=== PATIENT | female | born 1955 | race Caucasian/White ===

== ENCOUNTER 2016-12-08 22:29 | Inpatient (IN) | payer MEDICARE, OTHER ==
--- NOTE | 2016-12-08 22:31 | ED Physician Documentation ---
General Adult - HISTORIAN Historian: patient - HPI Stated Complaint: sob, chest pain Chief Complaint: General Adult Onset: days ago (3) Timing: worse Severity: moderate Further Comments: yes (Pt is a 61 yo female who has been having increasing sob and cough x 3 days as well as chest pain that began after sob and cough developed. Pt has had chills, malaise. PMHx bronchitis & pneumonia. Pt also has hx stroke.) - ROS CONST: weakness, chills, other (malaise) EYES/ENT: none CVS/RESP: shortness of breath, cough (productive) GI/: none MS/SKIN/LYMPH: none - PAST HX Past History: other (CVA; pneumonia; bronchitis; HTN; HLD; GERD; carotid bruit) Allergies/Adverse Reactions: Allergies Allergy/AdvReac Type Severity Reaction Status Date / Time No Known Drug Allergies Allergy Verified 09/20/16 13:21 - SOCIAL HX Smoking History: other (unknown if ever smoked) - FAMILY HX Family History: No - VITAL SIGNS Vital Signs: Vital Signs Temp Pulse Resp BP Pulse Ox 128/70 09/20/16 14:27 - REVIEWED ASSESSMENTS Nursing Assessment Reviewed: Yes Vitals Reviewed: Yes Progress - Progress Progress: Duoneb HFN Tylenol 1000 mg po KCl 20 mEq po Solu-medrol 80 mg IV Albuterol HFN NS 500 cc IVF bolus Levaquin 500 mg IV Blood cx's pending. Admit to Dr. Amaya. - EKG/XRAY/CT EKG: NSR (HR=71; frequent atrial premature beats; LVH by voltage) XRAY: chest (bilateral pulmonary infiltrates are present, greater on the left than right) General Adult Physical Exam - PHYSICAL EXAM GENERAL APPEARANCE: moderate distress EENT: eye inspection normal, pharynx normal, dry mucous membranes NECK: normal inspection, supple RESPIRATORY: wheezes, rales, rhonchi CVS: tachycardia ABDOMEN: soft, no organomegaly, normal bowel sounds BACK: normal inspection, no CVA tenderness SKIN: pallor EXTREMITIES: non-tender, normal range of motion, no evidence of injury NEURO: oriented X3, motor nml, sensation nml Discharge Clincal Impression: Hypokalemia, Chest pain Pneumonia Qualifiers: Pneumonia type: due to unspecified organism Laterality: bilateral Lung location : lower lobe of lung Qualified Code(s): J18.9 - Pneumonia, unspecified organism Condition: Fair Decision to Admit: [id number] Decision Time: 00:10
[2016-12-08] MEDS ORDERED: ASPIRIN 81 MG CHEW TAB PO ONE (22:32)
[2016-12-08] MEDS ORDERED: IPRATROPIUM/ALBUTEROL SULFATE 3 ML AMPUL.NEB NEB ONE (22:32)
[2016-12-08] MEDS ORDERED: ASPIRIN 325 MG TABLET PO ONE (22:45)
[2016-12-08] MEDS ORDERED: 0.9 % SODIUM CHLORIDE 1,000 ML IV ONE (22:50)
[2016-12-08 22:57] LABS: EOSINOPHILS % 0.1 % (0.0-6.8); LYMPHOCYTES # 0.6 # k/uL (0.6-4.0); MEAN CORPUSCULAR HEMOGLOBIN 24.9 pg (28.0-34.0); MONOCYTES # 0.3 # k/uL (0.0-0.9); NEUTROPHILS # 9.4 # k/uL (1.4-7.7)
[2016-12-08] MEDS ORDERED: 0.9 % SODIUM CHLORIDE 1,000 ML IV SCH (23:00)
[2016-12-08 23:09] LABS: eGFR (African) > 60; eGFR (Non-African) > 60
[2016-12-08] MEDS ORDERED: ACETAMINOPHEN 500 MG TABLET PO ONE (23:10)
[2016-12-08] MEDS ORDERED: ACETAMINOPHEN 500 MG TABLET ONE (23:16)
[2016-12-08] MEDS ORDERED: POTASSIUM CHLORIDE 20 MEQ TABLET.ER PO ONE (23:24)
[2016-12-08] MEDS ORDERED: methylPREDNISolone SOD SUCC 40 MG/ML VIAL IM ONE (23:25)
[2016-12-08] MEDS ORDERED: ALBUTEROL SULFATE 2.5 MG/3 ML AMPUL.NEB NEB ONE (23:42)
[2016-12-08] MEDS ORDERED: LEVOFLOXACIN 500MG/D5W 100ML 100 ML IV ONE (23:44)
[2016-12-09] MEDS ORDERED: POTASSIUM CHLORIDE 40 MEQ/NS 1,000 ML IV ONE (00:45)
[2016-12-09] MEDS ORDERED: ENOXAPARIN SODIUM 40 MG/0.4 ML DISP.SYRIN SQ SCH (01:00)
[2016-12-09 01:08] VITALS: BMI 25.2
[2016-12-09] MEDS: 0.9 % SODIUM CHLORIDE 1,000 ML, POTASSIUM CHLORIDE 40 MEQ/NS 40 ML IV SCH ×6 (01:29→21:36)
[2016-12-09] MEDS ORDERED: 0.9 % SODIUM CHLORIDE 250 ML IV ONE (01:33)
[2016-12-09] MEDS ORDERED: AZITHROMYCIN 500 MG VIAL IV ONE (01:33)
[2016-12-09] MEDS: ALBUTEROL SULFATE 2.5 MG/3 ML AMPUL.NEB NEB SCH ×5 (01:50→17:12)
[2016-12-09] MEDS: AZITHROMYCIN 500 MG in 0.9 % SODIUM CHLORIDE 250 ML IV SCH (01:51)
[2016-12-09] MEDS ORDERED: SALINE FLUSH 10 ML DISP.SYRIN IVF ONE ×3 (03:36→18:33)
[2016-12-09 05:06] LABS: eGFR (African) > 60; eGFR (Non-African) > 60
[2016-12-09] MEDS: SIMVASTATIN 20 MG TABLET PO SCH ×2 (05:28→19:27)
--- NOTE | 2016-12-09 06:45 | Diagnostic Imaging Report ---
Report Submission Date: Dec 08, 2016 11:30:08 PM WIND INSTRUMENT REPAIRER Patient ~ Study Name: DARYN BALBUENA ~ Date: Dec 08, 2016 11:02:06 PM WIND INSTRUMENT REPAIRER ~ Modality Type: CR Gender: F ~ Description: CHEST : 57 ~ Institution: [facility] Physician: [place] ~ ~ ~ ~ Ap portable upright radiographs of the chest Clinical history: Chest pain short of breath Technique: anterior /posterior portable upright Findings: ~bilateral pulmonary infiltrates are present, greater on the left than right. The heart is enlarged. The aorta is tortuous and calcified. There is density over the right hilum which may represent a mass superimposed infiltrate. Both lung trevizo are hypoventilated. Impression: Bilateral pulmonary infiltrates Right hilar enlargement Hypo ventilation Cardiomegaly Aortic atherosclerosis ~ Electronically signed on Dec 08, 2016 11:30:08 PM WIND INSTRUMENT REPAIRER by: Andrew DESAI
[2016-12-09] MEDS ORDERED: LEVOFLOXACIN 500MG/D5W 100ML 100 ML IV ONE (08:53)
[2016-12-09] MEDS ORDERED: ONDANSETRON HCL 4 MG TAB.RAPDIS PO PRN (08:55)
[2016-12-09] MEDS ORDERED: PANTOPRAZOLE SODIUM 40 MG TABLET PO SCH (09:00)
[2016-12-09] MEDS ORDERED: LEVOFLOXACIN 500MG/D5W 100ML 500 MG in PREMIX BAG 1 BAG IV SCH (09:00)
--- NOTE | 2016-12-09 09:02 | History and Physical Report ---
History of Present Illnes - History of Present Illness Reason for Visit: Bibasilar pneumonia, hypokalemia History of Present Illness: 61 year old female who came to the ER last night due to cough and chest pain. She has had a productive cough for the past few days and specifically says that she has been ill now since Thursday. She has had some precordial chest pain also with this. She denies that she has measured her temperature, but has felt flushed and has had some difficulty eating due to chronic nausea since onset of symptoms. She has not used a nebulizer and is not oxygen dependent at home. - Past Medical History Cardiac: HTN Pulmonary: Asthma PERSONAL CARER: Other (Stroke with right hemiparesis) Gastrointestinal: Gastritis Heme/Onc: Anemia NOS Musculoskeletal: Chronic low back pain Endocrine: denies: Diabetes - Past Surgical History Past Surgical History: Hysterectomy - Past Social History Smoke: No Alcohol: None Drugs: None Lives: With Family () - Health Maintenance Health Maintenance: Cholesterol Influenza Vaccine: Current for this Influenza Season Pneumonia Vaccine: Yes Resuscitation Status: Resusciation Status Resuscitation Status Full Code Review of Systems - Review of Systems Constitutional: Fever, Chills, Sweats Eyes: negative: pain ENT: negative: Ear Pain Respiratory: Cough, SOB with Excertion, Sputum. negative: Hemoptysis Cardiovascular: Chest Pain Gastrointestinal: Nausea, Vomiting Genitourinary: negative: Dysuria Musculoskeletal: negative: Neck Pain, Shoulder Pain Skin: negative: Rash Neurological: Weakness. negative: Confusion, Seizures - Medications/Allergies Allergies/Adverse Reactions: Allergies Allergy/AdvReac Type Severity Reaction Status Date / Time No Known Drug Allergies Allergy Verified 09/20/16 13:21 Current Inpatient Medications: Current Inpatient Medications Albuterol Sulfate (Ventolin) 2.5 mg NEB Q4 [facility] Last Admin: 12/09/16 08:51 Dose: 2.5 mg Amlodipine Besylate (Norvasc) 10 mg PO DAILY [facility] Stop: 12/14/16 23:59 Enoxaparin Sodium (Lovenox) 40 mg SQ QD [facility] Stop: 12/23/16 08:59 Fluticasone Propionate (Flonase Nasal [place]) 1 spray NS DAILY [facility] Gabapentin (Neurontin) 300 mg PO TID [facility] Azithromycin 500 mg/ Sodium (Chloride) 250 mls @ 125 mls/hr IV Q24H [facility] Stop: 12/19/16 00:59 Last Admin: 12/09/16 01:51 Dose: 125 mls/hr Levofloxacin/Dextrose 500 mg/ (PREMIX BAG) 100 mls @ 100 mls/hr IV DAILY [facility] Stop: 12/23/16 08:59 Sodium Chloride/ Potassium (Chloride/Sodium Chloride) 1,040 mls @ 100 mls/hr IV Q10H [facility] Last Admin: 12/09/16 01:29 Dose: 100 mls/hr Loratadine (Claritin) 10 mg PO DAILY [facility] Losartan Potassium (Cozaar) 50 mg PO DAILY [facility] Nortriptyline HCl (Nortriptyline Hcl) 25 mg PO HS [facility] Ondansetron HCl (Zofran Odt) 4 mg PO Q6H PRN PRN Reason: Nausea / Vomiting Pantoprazole Sodium (Protonix) 40 mg PO DAILY [facility] Potassium Chloride (Klor-Con M20) 20 meq PO BID [facility] Simvastatin (Zocor) 20 mg PO HS [facility] Last Admin: 12/09/16 05:28 Dose: Not Given Exam - Exam Vital Signs: Vital Signs (72 hours) 12/09/16 12/09/16 12/09/16 00:14 00:28 00:30 Temperature 101.4 F H 98.1 F Pulse Rate 121 H Pulse Rate [ 124 H 121 H Pulse ox] Respiratory 28 H 24 Rate Blood Pressure 130/52 126/54 [Right Arm] O2 Sat by Pulse 94 93 93 Oximetry 12/09/16 12/09/16 12/09/16 01:00 01:33 01:40 Temperature 97.9 F Pulse Rate 113 H 112 H Pulse Rate [ 112 H Pulse ox] Respiratory 20 Rate Blood Pressure 143/50 [Right Arm] O2 Sat by Pulse 93 95 95 Oximetry 12/09/16 12/09/16 12/09/16 04:00 05:04 05:05 Temperature 97.6 F Pulse Rate 103 H 105 H Pulse Rate [ 103 H Pulse ox] Respiratory 22 Rate Blood Pressure 116/57 [Right Arm] O2 Sat by Pulse 95 93 93 Oximetry 12/09/16 08:00 Temperature Pulse Rate 109 H Pulse Rate [ Pulse ox] Respiratory Rate Blood Pressure [Right Arm] O2 Sat by Pulse 93 Oximetry General: Alert, Oriented to Person, Oriented to Place, Moderate distress ( respiratory) HEENT: Atraumatic, PERRLA, EOMI Neck: No: Stridor Lungs: Respiratory Distress, Wheezes, Prolonged Expiration, Decreased Air Movement Cardiovascular: Regular rate Murmur: Systolic Murmur (unchanged from last exam) Heart Murmur Grade: II Abdomen: Normal bowel sounds, Soft, No tenderness Genitourinary: No: Right Inguinal Hernia, Left Inguinal Lymph Male Genitourinary: Other (NA) Female Genitourinary: No: Prolapse Integumentary: Normal, Pale Extremities: No clubbing, No cyanosis, No edema Neurological: Generalized Weakness Psych/Mental Status: Mental status NL - Laboratory Results Laboratory Results: Laboratory Results 12/09/16 12/09/16 04:40 04:40 Sodium 138 Potassium 3.3 L Chloride 100 Carbon Dioxide 24 BUN 12 Creatinine 0.6 Estimated Creat Clear 131 Est GFR ( Amer) > 60 Est GFR (Non-Af Amer) > 60 Glucose 190 H Calcium 8.7 Total Bilirubin 0.2 AST 18 ALT 17 Alkaline Phosphatase 92 Creatine Kinase 147 Troponin I < 0.03 Total Protein 6.9 Albumin 4.3 - Interpretation/Data Interpretation/Data: EKG shows sinus tachycardia, no evidence of ongoing ischemia or previous infarction Troponins are negative CXR shows bibasilar infiltrates Assessment/Plan - Assessment/Plan (1) Chest pain Status: Acute Current Visit: Yes Qualifiers: Chest pain type: precordial chest pain Qualified Code(s): R07.2 - Precordial pain Assessment: With reassuring EKG and negative troponins (2) Hypokalemia Status: Acute Current Visit: Yes Assessment: Improved after initial dose of potassium Plan: Recheck BMP in the AM Start potassium chloride 20 meq po BID (3) Pneumonia Status: Acute Current Visit: Yes Qualifiers: Pneumonia type: due to unspecified organism Laterality: bilateral Lung location: lower lobe of lung Qualified Code(s): J18.9 - Pneumonia, unspecified organism Assessment: Currently on Azithromycin and levofloxacin (4) Anemia Status: Acute Current Visit: No Qualifiers: Anemia type: iron deficiency Iron deficiency anemia type: other iron deficiency Qualified Code(s): D50.8 - Other iron deficiency anemias Assessment: Check CBC in the am Continue pantoprazole for GI prophylaxis (5) Hemiparesis Status: Acute Current Visit: No VTE Assessment - RISK FACTOR SCORE VTE RISK FACTOR SCORES: AGE 40-60 YEARS, ACUTE INFECTION OTHER THEN SEPSIS - RISK VTE MODERATE RISK: SCORE OF 2 (RISK PROXIMAL DVT 2-4%) PROPHYAXIS NEEDED
[2016-12-09] MEDS: LORATADINE 10 MG TABLET PO SCH (09:19)
[2016-12-09] MEDS: LOSARTAN POTASSIUM 50 MG TABLET PO SCH (09:19)
[2016-12-09] MEDS: FLUTICASONE PROPIONATE 120 SPRAY/16 GR BOTTLE NS SCH (09:19)
[2016-12-09] MEDS: ENOXAPARIN SODIUM 40 MG/0.4 ML DISP.SYRIN SQ SCH (09:20)
[2016-12-09] MEDS: GABAPENTIN 300 MG CAPSULE PO SCH ×3 (09:20→17:59)
[2016-12-09] MEDS: POTASSIUM CHLORIDE 20 MEQ TABLET.ER PO SCH ×2 (09:20→19:33)
[2016-12-09] MEDS: amLODIPine BESYLATE 5 MG TABLET PO SCH (09:20)
[2016-12-09 11:15] LABS: MEAN CORPUSCULAR HEMOGLOBIN 24.5 pg (28.0-34.0)
[2016-12-09 11:31] LABS: HYPOCHROMASIA 1+ (NEGATIVE); SEGMENTED NEUTROPHILS % 93 % (39-79)
[2016-12-09] MEDS: traMADol HCL 50 MG TABLET PO PRN (14:43)
[2016-12-09] MEDS: LORazepam 0.5 MG TABLET PO PRN (18:37)
[2016-12-09] MEDS: methylPREDNISolone SOD SUCC 125 MG/2 ML VIAL IVP SCH (18:37)
[2016-12-09] MEDS: LEVOFLOXACIN 500MG/D5W 100ML 500 MG in PREMIX BAG 1 BAG IV SCH (19:28)
[2016-12-09] MEDS ORDERED: LEVALBUTEROL HCL 1.25 MG/3 ML AMPUL.NEB NEB ONE (19:34)
[2016-12-09] MEDS ORDERED: LEVALBUTEROL HCL 1.25 MG/3 ML AMPUL.NEB NEB PRN (19:46)
[2016-12-09] MEDS: IPRATROPIUM/ALBUTEROL SULFATE 3 ML AMPUL.NEB NEB SCH ×2 (19:50→23:32)
[2016-12-09] MEDS ORDERED: NORTRIPTYLINE HCL 25 MG CAPSULE PO SCH (21:00)
[2016-12-10] MEDS: 0.9 % SODIUM CHLORIDE 1,000 ML, POTASSIUM CHLORIDE 40 MEQ/NS 40 ML IV SCH ×2 (00:30)
[2016-12-10] MEDS: traMADol HCL 50 MG TABLET PO PRN (00:31)
[2016-12-10] MEDS: AZITHROMYCIN 500 MG in 0.9 % SODIUM CHLORIDE 250 ML IV SCH (00:31)
[2016-12-10] MEDS: LORazepam 0.5 MG TABLET PO PRN (00:32)
[2016-12-10] MEDS: IPRATROPIUM/ALBUTEROL SULFATE 3 ML AMPUL.NEB NEB SCH ×2 (03:10→05:47)
[2016-12-10] MEDS: methylPREDNISolone SOD SUCC 125 MG/2 ML VIAL IVP SCH ×2 (05:48→13:32)
[2016-12-10 06:29] LABS: MEAN CORPUSCULAR HEMOGLOBIN 23.8 pg (28.0-34.0)
[2016-12-10 06:49] LABS: eGFR (African) > 60; eGFR (Non-African) > 60
[2016-12-10] MEDS ORDERED: PANTOPRAZOLE SODIUM 40 MG TABLET PO SCH ×2 (07:00)
--- NOTE | 2016-12-10 08:26 | Inpatient Progress Note ---
Subjective - Required Recertification Statement I anticipate X number of days because-include discharge plan: 3 - Review of Systems Events since last encounter: Carol is continuing to improve, albeit somewhat slowly. Her labs look better today with her hemoglobin stabilizing. I suspect that the initial drop was hydrational. She has not had any blood in her stools. I did guiac one stool yesterday which was negative. Her potassium is now normal. Her CXR showed no worsening of her pneumonia. Right hilar fullness is again noted. She will need CT chest in the near future, however I don't think that she can tolerate that in her current condition. General: Fatigue. Denies: Chills HEENT: Denies: Head Aches Pulmonary: Dyspnea, Cough, Pleuritic Chest Pain Cardiovascular: Chest Pain. Denies: Palpitations, Orthopnea Gastrointestinal: Nausea, Vomiting Genitourinary: Denies: Dysuria Musculoskeletal: Denies: Neck Pain, Shoulder Pain Neurological: Weakness. Denies: Confusion Objective - Exam Vitals and I&O: Vital Signs Temp 98.9 F 12/10/16 05:33 Pulse 98 H 12/10/16 05:33 Resp 24 12/10/16 05:51 BP 131/81 12/10/16 05:33 Pulse Ox 90 L 12/10/16 05:33 Intake & Output 12/09/16 12/09/16 12/10/16 11:59 23:59 11:59 Intake Total 1520 1495 1200 Output Total 600 800 Balance 1520 895 400 Weight 70.9 kg Intake: IV 7330 600 3751 Right Antecubital 1400 Right Forearm 895 1200 Oral 120 600 Output: Urine 600 800 Other: Voiding Method Toilet Toilet # Voids 3 5 # Bowel Movements 1 General: Alert, Oriented to Person, Oriented to Place, Moderate distress ( respiratory) HEENT: Atraumatic, PERRLA, Other (dentures) Neck: Supple, No JVD Lungs: Speaks full Sentences, Respiratory Distress, Wheezes, Decreased Air Movement Cardiovascular: Regular rate Abdomen: Normal bowel sounds, Soft, No tenderness Extremities: No clubbing, No cyanosis, No edema Skin: Normal, [place] Neurological: Normal speech Psych/Mental Status: Mental status NL - Results Results: Laboratory Results WBC 9.10 K/ul (4.00-12.00) 12/10/16 06:20 RBC 3.47 M/ul (3.90-5.20) L 12/10/16 06:20 Hgb 8.3 g/dL (12.0-16.0) L 12/10/16 06:20 Hct 28.4 % (34.5-46.5) L 12/10/16 06:20 MCV 81.8 fl (80.0-100.0) 12/10/16 06:20 MCH 23.8 pg (28.0-34.0) L 12/10/16 06:20 MCHC 29.1 g/dL (30.0-36.0) L 12/10/16 06:20 RDW 14.3 % (11.3-14.3) 12/10/16 06:20 Plt Count 155 K/mm3 (130-400) 12/10/16 06:20 Neut % (Auto) 90.8 % (39.0-79.0) H 12/08/16 22:48 Lymph % (Auto) 5.4 % (16.0-50.0) L 12/08/16 22:48 [place] % (Auto) 3.0 % (0.0-11.0) 12/08/16 22:48 Eos % (Auto) 0.1 % (0.0-6.8) 12/08/16 22:48 Baso % (Auto) 0.0 (0.0-1.5) 12/08/16 22:48 Neut # 9.4 # k/uL (1.4-7.7) H 12/08/16 22:48 Lymph # 0.6 # k/uL (0.6-4.0) 12/08/16 22:48 [place] # 0.3 # k/uL (0.0-0.9) 12/08/16 22:48 Eos # 0.0 # k/uL (0.0-0.6) 12/08/16 22:48 Baso # 0.0 # k/uL (0.0-0.5) 12/08/16 22:48 Seg Neutrophils % 93 % (39-79) H 12/09/16 11:00 Band Neutrophils % 5 % (0-12) 12/09/16 11:00 Lymphocytes % 2 % (16-50) L 12/09/16 11:00 Reactive Lymphs % 0.6 % (0.0-5.0) 12/08/16 22:48 Reactive Lymphs # 0.1 # k/uL (0.0-0.8) 12/08/16 22:48 Plt Morphology Comment Normal (NORMAL) 12/09/16 11:00 Hypochromasia 1+ (NEGATIVE) H 12/09/16 11:00 RBC Morph Comment Abnormal (NORMAL) H 12/09/16 11:00 PT 11.2 Seconds (9.7-11.5) 12/08/16 22:48 INR 1.1 (0.9-1.1) 12/08/16 22:48 APTT 32.8 Seconds (24.5-32.8) 12/08/16 22:48 D-Dimer 652 ng/mL (0-682) 12/08/16 22:48 Sodium 140 mmol/L (136-145) 12/10/16 06:20 Potassium 4.3 mmol/L (3.5-5.0) 12/10/16 06:20 Chloride 105 mmol/L (98-110) 12/10/16 06:20 Carbon Dioxide 26 mmol/L (20-32) 12/10/16 06:20 BUN 11 mg/dL (10-26) 12/10/16 06:20 Creatinine 0.5 mg/dL (0.4-1.5) 12/10/16 06:20 Estimated Creat Clear 157 12/10/16 06:20 Est GFR ( Amer) > 60 (60-) 12/10/16 06:20 Est GFR (Non-Af Amer) > 60 (60-) 12/10/16 06:20 Glucose 179 mg/dL (70-99) H 12/10/16 06:20 Calcium 9.6 mg/dL (8.5-10.5) 12/10/16 06:20 Total Bilirubin 0.2 mg/dL (0.2-1.2) 12/09/16 04:40 AST 18 U/L (0-41) 12/09/16 04:40 ALT 17 U/L (0-45) 12/09/16 04:40 Alkaline Phosphatase 92 U/L (46-116) 12/09/16 04:40 Creatine Kinase 200 U/L (0-225) 12/09/16 11:00 Troponin I < 0.03 ng/mL (0.00-0.06) 12/09/16 11:00 NT-Pro-B Natriuret Pep 255.3 pg/mL (15.0-125.0) H 12/08/16 22:48 Total Protein 6.9 g/dL (6.0-8.5) 12/09/16 04:40 Albumin 4.3 g/dL (3.0-5.5) 12/09/16 04:40 Assessment/Plan - Assessment/Plan (1) Chest pain Status: Acute Current Visit: Yes Qualifiers: Chest pain type: precordial chest pain Qualified Code(s): R07.2 - Precordial pain Assessment: Improved with negative troponins and no evidence of ischemia on EKG (2) Hypokalemia Status: Acute Current Visit: Yes Assessment: Now normokalemic (3) Pneumonia Status: Acute Current Visit: Yes Qualifiers: Pneumonia type: due to unspecified organism Laterality: bilateral Lung location: lower lobe of lung Qualified Code(s): J18.9 - Pneumonia, unspecified organism Assessment: Improved clinically Plan: Continue current antibiotics and nebulizer/steroid treatment (4) Anemia Status: Acute Current Visit: No Qualifiers: Anemia type: iron deficiency Iron deficiency anemia type: other iron deficiency Qualified Code(s): D50.8 - Other iron deficiency anemias Assessment: Stable, no evidence of GI blood loss Plan: Continue to guiac stools Check CBC in am (5) Hemiparesis Status: Acute Current Visit: No Assessment: Chronic due to stroke (6) Hilar mass Status: Acute Current Visit: Yes Assessment: Will need CT chest to evaluate, I don't think she can tolerate this currently
[2016-12-10] MEDS: FLUTICASONE PROPIONATE 120 SPRAY/16 GR BOTTLE NS SCH (08:53)
[2016-12-10] MEDS: POTASSIUM CHLORIDE 20 MEQ TABLET.ER PO SCH (08:53)
[2016-12-10] MEDS: LOSARTAN POTASSIUM 50 MG TABLET PO SCH (08:53)
[2016-12-10] MEDS: LORATADINE 10 MG TABLET PO SCH (08:53)
[2016-12-10] MEDS: amLODIPine BESYLATE 5 MG TABLET PO SCH (08:54)
[2016-12-10] MEDS: ENOXAPARIN SODIUM 40 MG/0.4 ML DISP.SYRIN SQ SCH (08:54)
[2016-12-10] MEDS: GABAPENTIN 300 MG CAPSULE PO SCH ×2 (08:54→14:09)
[2016-12-10] MEDS ORDERED: LEVOFLOXACIN 500MG/D5W 100ML 100 ML IV ONE (09:52)
[2016-12-10] MEDS: LEVOFLOXACIN 500MG/D5W 100ML 500 MG in PREMIX BAG 1 BAG IV SCH (10:02)
[2016-12-10] MEDS ORDERED: SALINE FLUSH 10 ML DISP.SYRIN IVF ONE (13:52)
[2016-12-10 17:18] VITALS: BP 152/84
[2016-12-10] MEDS: LEVALBUTEROL HCL 1.25 MG/3 ML AMPUL.NEB NEB SCH ×2 (17:25→17:27)
--- NOTE | 2016-12-10 18:21 | Diagnostic Imaging Report ---
[facility] [address] [facility] [address] [place], [place]. [address] Report Submission Date: Dec 10, 2016 6:54:33 AM CLOTH FOLDER MACHINE Patient Study Name: DARYN BALBUENA Date: Dec 10, 2016 6:33:49 AM CLOTH FOLDER MACHINE Modality Type: CR Gender: F Description: CHEST : 57 Institution: [facility] Physician: HIPOLITO RONAK 2 views of the chest History: BIBASILAR PNEUMONIA findings: Comparison: Chest x-ray dated December 08, 2016 Low lung volumes. Mild cardiomegaly. Patient is rotated Prominent right hilum Opacity again noted in the right midlung and lower lobe. Vague opacity in the left mid and lower lung trevizo persists. Left pleural effusion may be present. No pneumothorax. No acute osseous pathology Impression: 1. Cardiomegaly 2. Bilateral pulmonary airspace opacities persist without change. Followup to resolution. Small left pleural effusion may be present. 3. Prominent right hilum is again seen. CT chest evaluation may be considered when feasible to exclude malignancy. Electronically signed on Dec 10, 2016 6:54:33 AM CLOTH FOLDER MACHINE by: Celine Jasso The cardiomediastinal silhouette is stable, with prominence of the right hilum? related to tortuous aorta versus mass Addendum electronically signed by Celine Jasso on December 10, 2016 6:57: 56 AM CLOTH FOLDER MACHINE MTDD
--- NOTE | 2016-12-10 18:30 | Diagnostic Imaging Report ---
[facility] [address] [facility].[address] [address] Report Submission Date: Dec 10, 2016 1:22:08 PM NEAR EASTERN ARCHAEOLOGY LECTURER Patient Study Name: DARYN BALBUENA Date: Dec 10, 2016 1:01:19 PM NEAR EASTERN ARCHAEOLOGY LECTURER Modality Type: CR Gender: F Description: CHEST : 57 Institution: [facility] Physician: MATHEW ARREDONDO Chest -one view CLINICAL HISTORY: Dyspnea. FINDINGS: Examination of the chest single portable AP view 12/10/2016 1301 hr with comparison to examination from earlier in the day demonstrates bilateral infiltrates without significant change. There is a right paramediastinal mass density that may be related to ectatic or tortuous aorta. The possibility of underlying mass cannot be excluded. Consider CT scan for better evaluation. IMPRESSION: Prominence of right paramediastinal soft tissues with right perihilar infiltrate that has a somewhat nodular appearance. Consider CT scan for better evaluation. Electronically signed on Dec 10, 2016 1:22:08 PM NEAR EASTERN ARCHAEOLOGY LECTURER by: Jacob DESAI
--- NOTE | 2016-12-10 18:32 | Diagnostic Imaging Report ---
[facility] [address] [facility] [place], [place]. [address] Report Submission Date: Dec 10, 2016 3:35:24 PM STEM SHAPER Patient Study Name: DARYN BALBUENA Date: Dec 10, 2016 2:22:31 PM STEM SHAPER Modality Type: CT\SR Gender: F Description: CT ANGIOGRAPHY CHEST 7 : 57 Institution: [facility] Physician: MATHEW SAMUELS chest History: INCREASING SOB, HX OF STROKE (Hx) / R/O PE Multiple axial images of the chest are submitted with reconstructions Findings: No similar comparison studies Mucus is noted in the trachea. There is slight narrowing of the midline trachea Motion artifact. Scattered subcentimeter mediastinal lymph nodes. No pericardial effusion. Cardiomegaly Limited evaluation of the pulmonary arterial subsegmental branches to the bilateral lower lobe lobes for evaluation of PE due to extensive consolidation infiltrates, within this limitation, no obvious PE. Patchy infiltrate right upper lobe Infiltrates are seen in the right middle lobe and in the right lower lobe Dense masslike consolidation with air bronchograms is seen in the inferior left upper lobe extending to the left lower lobe The aorta is tortuous, ascending aorta measures 3.9 cm Bone windows demonstrated with multilevel thoracic spine degenerative changes Limited views of the upper abdomen demonstrate no biliary dilatation. Minimal gallbladder sludge. Atherosclerotic calcification of the aorta and its branches. Pancreas is atrophic. Impression: 1. Motion artifact. Limited evaluation of the pulmonary arterial subsegmental branches due to extensive masslike consolidation in the left lung and right lower lobe infiltrates, within this limitation no PE 2. Cardiomegaly. No pericardial effusion. Aorta is tortuous, ascending aorta measures 3.9 cm 3. Extensive wedge shaped masslike consolidation is seen in the inferior left upper lobe extending from the periphery of the lung to the mediastinum with presence of air bronchograms. Postobstructive pneumonia is included in the differential diagnosis. There is dense consolidation in the left lower lobe. While this may be due to collapsed lung, alveolar hemorrhage is included in the differential diagnosis. Recommend followup to resolution. Underlying mass is difficult to exclude. 4. Mucous plugs are noted in the upper trachea with slight tracheal narrowing. Bronchoscopic correlation may be done 5. Patchy infiltrate right upper lobe. Infiltrates are also seen in the right middle and lower lobe suggestive of multifocal pneumonia. Subsegmental atelectasis in right lower lobe Electronically signed on Dec 10, 2016 3:35:24 PM STEM SHAPER by: Celine DESAI
--- NOTE | 2016-12-11 17:56 | Discharge Summary ---
DATE OF ADMISSION: December 09, 2016. DATE OF DISCHARGE: December 10, 2016. DIAGNOSES ON THIS HOSPITALIZATION: 1. Bibasilar pneumonia. 2. Hilar mass. 3. Hypokalemia. 4. Pneumonia. 5. Anemia. SUMMARIZATION OF ADMISSION HISTORY AND PHYSICAL: This is a 61-year-old female well-known to myself who presented to the emergency room with about a 3-day history of increasing dyspnea on exertion and then shortness of breath even at rest causing her to come to the emergency department. She was noted at that time to be fairly anemic with a hemoglobin of 9.5 and bibasilar infiltrates were noted and she was admitted for treatment of community-acquired pneumonia. HOSPITAL COURSE: She was started on Levaquin and azithromycin. She was also hydrated. Her hemoglobin did drop to 8.4 but on hospital day number 2, it was only 8.3. The stool guaiacs were negative. Over the course of the day, she continued to have increasing shortness of breath. ABGs were stable, however, her labor of respiration was significant enough that I did not think that it was prudent for her to remain at our facility. As a result, I contacted [facility], specifically Dr. Velasco, and she will be accepted there and will be transferred by ambulance. Continue current medications. A copy of her CT scan , which did not show any apparent pulmonary embolization, was sent. It did show dense infiltrates, as well as some mucous plugging. Copies of her history and physical, progress notes, and labs were sent with her. CONDITION ON DISCHARGE: Discharged to [facility] in guarded condition. MEDICATIONS ON DISCHARGE: Continue current medications. LLOYD
[2016-12-15 08:20] LABS: ABG BASE EXCESS 1.5 (-2 - +2); ABG PH 7.54 (7.35-7.45)
[2016-12-15 08:21] LABS: ABG BASE EXCESS 0.1 (-2 - +2); ABG PH 7.45 (7.35-7.45)
== END 2016-12-10 15:45 | disposition short-term general hospital (02) | DRG 194 ==
LOC: ED 22:29 → SOUTH 12-09 00:08
PROVIDERS: ADMIT Family Medicine; ATTEND Family Medicine
DX: J18.9 Pneumonia, unspecified organism (principal); G81.90 Hemiplegia, unspecified affecting unspecified side; R07.9 Chest pain, unspecified; D50.8 Other iron deficiency anemias; E87.6 Hypokalemia
CPT/HCPCS: 71010; 71020; 71275; 80048; 80053; 82550; 83880; 84484; 85025; 85027; 85379; 85610; 85730; 87040; 87070; 87186; 93005; 94640; 94760; 97003; 97166; 97535; A9270; J0456; J1030; J1650; J1956; J2930; J3480; J7030; J7050; J7614; Q9966; 36600; 82803; 96374; 96375; 99222; 99238; 99283; 99284; J2920; S1016

== ENCOUNTER 2017-05-12 10:19 | Outpatient (CLI) | payer MEDICARE, OTHER | END 2017-05-12 10:20 | LOC: LABRHC 10:19 | PROVIDERS: ATTEND Family Medicine | DX: J02.9 Acute pharyngitis, unspecified (principal) | CPT/HCPCS: 87070 ==

== ENCOUNTER 2017-06-03 15:39 | Outpatient (CLI) | payer MEDICARE, OTHER ==
[2017-06-03 15:58] LABS: BASOPHILS % 0.4 (0.0-1.5); EOSINOPHILS % 0.1 % (0.0-6.8); MEAN CORPUSCULAR HEMOGLOBIN 22.9 pg (28.0-34.0); MEAN CORPUSCULAR VOLUME 78.1 fl (80.0-100.0); MONOCYTES % 3.7 % (0.0-11.0); NEUTROPHILS # 2.9 # k/uL (1.4-7.7)
== END 2017-06-03 15:40 ==
LOC: LAB 15:39
PROVIDERS: ATTEND Family Medicine
DX: D50.8 Other iron deficiency anemias (principal); M60.9 Myositis, unspecified
CPT/HCPCS: 36415; 80048; 85025; 85651

== ENCOUNTER 2017-07-13 10:38 | Outpatient (CLI) | payer MEDICARE, OTHER ==
[2017-07-13 11:18] LABS: APPEARANCE,URINE CLEAR (CLEAR); COLOR,URINE YELLOW (YELLOW); OCCULT BLOOD,URINE NEGATIVE (NEGATIVE); PH URINE 6.5 (5.0 - 8.0)
[2017-07-13 11:19] LABS: AMORPHOUS SEDIMENT,UR FEW (NEGATIVE)
--- NOTE | 2017-07-13 12:43 | Diagnostic Imaging Report ---
[facility] [address] [facility] [address] Report Submission Date: Jul 13, 2017 11:58:19 AM CDT Patient Study Name: DARYN BALBUENA Date: Jul 13, 2017 11:07:48 AM CDT Modality Type: CR Gender: F Description: SPINE : 57 Institution: [facility] Physician: RONAK MCMILLAN - OP Examination: Plain film lumbar spine History: Discomfort Findings: 3 views of the lumbar spine demonstrates osteopenia. Retrolisthesis of L4 on L5 approximately 10%. Osteophyte formation. No compression deformity. Lower facet degenerative changes. Atherosclerotic disease involving the abdominal aorta. Impression: Osteopenia and degenerative changes. No acute compression deformity. Electronically signed on Jul 13, 2017 11:58:19 AM CDT by: Aram DESAI
== END 2017-07-13 13:05 ==
LOC: LAB 10:38
PROVIDERS: ATTEND Family Medicine
DX: R10.9 Unspecified abdominal pain (principal); M54.5 Low back pain
CPT/HCPCS: 72100; 81002

== ENCOUNTER 2017-08-05 16:12 | Outpatient (CLI) | payer MEDICARE, OTHER ==
[2017-08-05 16:33] LABS: BASOPHILS % 0.3 (0.0-1.5); EOSINOPHILS % 0.8 % (0.0-6.8); MEAN CORPUSCULAR HEMOGLOBIN 22.9 pg (28.0-34.0); MEAN CORPUSCULAR VOLUME 77.1 fl (80.0-100.0); MONOCYTES % 3.2 % (0.0-11.0); NEUTROPHILS # 4.1 # k/uL (1.4-7.7)
[2017-08-05 17:06] LABS: eGFR (African) > 60; eGFR (Non-African) > 60
[2017-08-06 05:21] LABS: IRON SERUM 20 ug/dL (37-145)
== END 2017-08-05 16:13 ==
LOC: LAB 16:12
PROVIDERS: ATTEND Family Medicine
DX: D50.8 Other iron deficiency anemias (principal); D50.9 Iron deficiency anemia, unspecified; I10 Essential (primary) hypertension
CPT/HCPCS: 36415; 80053; 82607; 83540; 85025

== ENCOUNTER 2017-08-21 11:47 | Outpatient (CLI) | payer MEDICARE, OTHER ==
[2017-08-21] MEDS ORDERED: IRON SUCROSE COMPLEX 200 MG in 0.9 % SODIUM CHLORIDE 50 ML IV SCH (12:00)
[2017-08-21] MEDS ORDERED: SALINE FLUSH 10 ML DISP.SYRIN IVF ONE (12:00)
[2017-08-21] MEDS ORDERED: 0.9 % SODIUM CHLORIDE 50 ML IV.SOLN IV ONE (12:00)
[2017-08-21] MEDS ORDERED: IRON SUCROSE COMPLEX 20 MG/ML 10ML VIAL IV ONE (12:00)
== END 2017-08-21 11:50 ==
LOC: INF 11:47
PROVIDERS: ATTEND Family Medicine
DX: D50.9 Iron deficiency anemia, unspecified (principal)
CPT/HCPCS: 96374; J1756; S1016

== ENCOUNTER 2017-08-24 13:22 | Outpatient (CLI) | payer MEDICARE, OTHER ==
[~2017-08-24 13:22] MED LIST: IRON SUCROSE COMPLEX 200 MG in 0.9 % SODIUM CHLORIDE 50 ML IV SCH
[2017-08-24] MEDS ORDERED: SALINE FLUSH 10 ML DISP.SYRIN IVF ONE (13:30)
[2017-08-24] MEDS ORDERED: 0.9 % SODIUM CHLORIDE 50 ML IV.SOLN IV ONE (13:30)
[2017-08-24] MEDS ORDERED: IRON SUCROSE COMPLEX 20 MG/ML 10ML VIAL IV ONE (13:30)
== END 2017-08-24 13:24 ==
LOC: INF 13:22
PROVIDERS: ATTEND Family Medicine
DX: D50.9 Iron deficiency anemia, unspecified (principal)
CPT/HCPCS: 96374; J1756; S1016

== ENCOUNTER 2017-08-25 07:54 | Outpatient (CLI) | payer MEDICARE, OTHER ==
[2017-08-25] MEDS ORDERED: 0.9 % SODIUM CHLORIDE 50 ML IV.SOLN IV ONE (08:00)
[2017-08-25] MEDS ORDERED: IRON SUCROSE COMPLEX 20 MG/ML 10ML VIAL IV ONE (08:00)
[2017-08-25] MEDS ORDERED: SALINE FLUSH 10 ML DISP.SYRIN IVF ONE (08:00)
[2017-08-25] MEDS ORDERED: IRON SUCROSE COMPLEX 200 MG in 0.9 % SODIUM CHLORIDE 50 ML IV SCH (12:00)
== END 2017-08-25 07:55 ==
LOC: INF 07:54
PROVIDERS: ATTEND Family Medicine
DX: D50.9 Iron deficiency anemia, unspecified (principal)
CPT/HCPCS: 96374; J1756

== ENCOUNTER 2017-08-28 07:46 | Outpatient (CLI) | payer MEDICARE, OTHER ==
[2017-08-28] MEDS ORDERED: SALINE FLUSH 10 ML DISP.SYRIN IVF ONE (08:00)
[2017-08-28] MEDS ORDERED: 0.9 % SODIUM CHLORIDE 50 ML IV.SOLN IV ONE (08:00)
[2017-08-28] MEDS ORDERED: IRON SUCROSE COMPLEX 20 MG/ML 10ML VIAL IV ONE (08:00)
[2017-08-28] MEDS ORDERED: IRON SUCROSE COMPLEX 200 MG in 0.9 % SODIUM CHLORIDE 50 ML IV SCH (12:00)
== END 2017-08-28 07:47 ==
LOC: INF 07:46
PROVIDERS: ATTEND Family Medicine
DX: D50.9 Iron deficiency anemia, unspecified (principal)
CPT/HCPCS: 96374; J1756; S1016

== ENCOUNTER 2017-08-31 07:54 | Outpatient (CLI) | payer MEDICARE, OTHER ==
[2017-08-31] MEDS ORDERED: SALINE FLUSH 10 ML DISP.SYRIN IVF ONE (08:00)
[2017-08-31] MEDS ORDERED: IRON SUCROSE COMPLEX 20 MG/ML 10ML VIAL IV ONE (08:00)
[2017-08-31] MEDS ORDERED: 0.9 % SODIUM CHLORIDE 50 ML IV.SOLN IV ONE (08:00)
[2017-08-31] MEDS ORDERED: IRON SUCROSE COMPLEX 200 MG in 0.9 % SODIUM CHLORIDE 50 ML IV SCH (09:00)
== END 2017-08-31 07:55 ==
LOC: INF 07:54
PROVIDERS: ATTEND Family Medicine
DX: D50.9 Iron deficiency anemia, unspecified (principal)
CPT/HCPCS: 96374; J1756; S1016

== ENCOUNTER 2017-09-14 10:23 | Outpatient (CLI) | payer MEDICARE, OTHER ==
[2017-09-14 10:39] LABS: BASOPHILS % 0.3 (0.0-1.5); EOSINOPHILS % 0.9 % (0.0-6.8); MEAN CORPUSCULAR HEMOGLOBIN 25.2 pg (28.0-34.0); MEAN CORPUSCULAR VOLUME 84.5 fl (80.0-100.0); MONOCYTES % 3.6 % (0.0-11.0)
== END 2017-09-14 10:24 ==
LOC: LAB 10:23
PROVIDERS: ATTEND Family Medicine
DX: D50.8 Other iron deficiency anemias (principal)
CPT/HCPCS: 36415; 83540; 85025

== ENCOUNTER 2017-11-13 08:39 | Outpatient (CLI) | payer MEDICARE, OTHER | END 2017-11-13 10:00 | LOC: OUT 08:39 | PROVIDERS: ATTEND Family Medicine | DX: R63.5 Abnormal weight gain (principal); Z71.3 Dietary counseling and surveillance; Z99.81 Dependence on supplemental oxygen | CPT/HCPCS: G0270; G0463 ==

== ENCOUNTER 2019-02-19 15:26 | Inpatient (IN) | payer MEDICARE, OTHER ==
[2019-02-19 16:04] LABS: MEAN CORPUSCULAR HEMOGLOBIN 28.9 pg (28.0-34.0)
[2019-02-19 16:05] LABS: BASOPHILS % 0.5 (0.0-1.5); EOSINOPHILS % 0.7 % (0.0-6.8); MONOCYTES % 4.1 % (0.0-11.0); NEUTROPHILS # 5.4 # k/uL (1.4-7.7)
[2019-02-19] MEDS ORDERED: VANCOMYCIN HCL 1.25 GM in 0.9 % SODIUM CHLORIDE 500 ML IV ONE (16:14)
[2019-02-19 16:21] LABS: eGFR (Non-African) > 60
--- NOTE | 2019-02-19 16:24 | ED Physician Documentation ---
Upper Extremity Problem - HPI Stated Complaint: R arm cellulitis Chief Complaint: Upper Extremity Problem Additional Information: Patient presents to ED with worsening swelling, redness, and pain to right arm. Patient was started on Augmentin BID for right arm cellulitis (thought to be secondary to a spider bite) on February 11. Due to GI upset she started to take the Augmentin once daily on February 18. Today the arm began to get significantly worse with more redness, swelling and pain. She also state the wound began to ooze clear fluid. She denies fever, chills, vomiting. He admits to nausea. Location: R forearm Onset: days ago (10) Timing: still present, worse Duration: constant Recent Injury: No Where: home Severity: moderate Associated Symptoms: nausea. denies: fever, chills, shortness of breath, vomiting Exacerbated By: nothing Relieved By: nothing Quality: pain, swelling, tenderness. denies: numbness, tingling Further Comments: no - ROS CONST: no problems EYES/ENT: none CVS/RESP: denies: chest pain, shortness of breath GI/: denies: abdominal pain MS/SKIN/LYMPH: denies: calf pain NEURO/PSYCH: denies: headache - PAST HX Past History: none Other History: hypertension Allergies/Adverse Reactions: Allergies Allergy/AdvReac Type Severity Reaction Status Date / Time amoxicillin [From Augmentin] AdvReac Vomiting Verified 02/19/19 16:10 clavulanic acid AdvReac Vomiting Verified 02/19/19 16:10 [From Augmentin] Home Medications: Ambulatory Orders Medication Instructions Recorded Acyclovir [Zovirax] 800 mg PO 5XDAY 02/19/19 Diclofenac Sodium [Voltaren] 75 mg PO BID 02/19/19 Gabapentin 300 mg PO TID 02/19/19 Sertraline HCl [Zoloft] 50 mg PO DAILY 02/19/19 amLODIPine BESYLATE [Norvasc] 10 mg PO 0900 02/19/19 - SOCIAL HX Smoking History: non-smoker Alcohol Use: none Drug Use: none - FAMILY HX Family History: none - VITAL SIGNS Vital Signs: Vital Signs Temp Pulse Resp BP Pulse Ox 98.3 F 88 20 157/80 97 02/19/19 17:34 02/19/19 17:34 02/19/19 17:34 02/19/19 17:34 02/19/19 17:34 - REVIEWED ASSESSMENTS Nursing Assessment Reviewed: Yes Vitals Reviewed: Yes Progress - Progress Progress: 1641 Discussed with Ladonna Silverio NP. Agrees with admission. ED Results Lab/Radiology - Lab Results Lab Results: Lab Results 02/19/19 02/19/19 15:51 15:51 WBC 7.70 K/ul K/ul (4.00-12.00) RBC 3.97 M/ul M/ul (3.90-5.20) Hgb 11.5 g/dL L g/dL (12.0-16.0) Hct 35.1 % % (34.5-46.5) MCV 88.0 fl fl (80.0-100.0) MCH 28.9 pg pg (28.0-34.0) MCHC 32.7 g/dL g/dL (30.0-36.0) RDW 13.4 % % (11.3-14.3) Plt Count 301 K/mm3 K/mm3 (130-400) Neut % (Auto) 70.1 % % (39.0-79.0) Lymph % (Auto) 24.6 % % (16.0-50.0) [place] % (Auto) 4.1 % % (0.0-11.0) Eos % (Auto) 0.7 % % (0.0-6.8) Baso % (Auto) 0.5 (0.0-1.5) Neut # (Auto) 5.4 # k/uL # k/uL (1.4-7.7) Lymph # (Auto) 1.9 # k/uL # k/uL (0.6-4.0) [place] # (Auto) 0.3 # k/uL # k/uL (0.0-0.9) Eos # (Auto) 0.1 # k/uL # k/uL (0.0-0.6) Baso # (Auto) 0.0 # k/uL # k/uL (0.0-0.5) Sodium 140 mmol/L mmol/L (136-145) Potassium 3.5 mmol/L mmol/L (3.5-5.1) Chloride 101 mmol/L mmol/L (98-107) Carbon Dioxide 27 mmol/L mmol/L (22-30) BUN 8 mg/dL mg/dL (7-17) Creatinine 0.55 mg/dL mg/dL (0.52-1.04) Estimated Creat Clear 155 Est GFR ( Amer) > 60 (60 - ) Est GFR (Non-Af Amer) > 60 (60 - ) Glucose 109 mg/dL H mg/dL (74-106) Calcium 9.3 mg/dL mg/dL (8.4-10.2) Total Bilirubin < 0.1 mg/dL L mg/dL (0.2-1.3) AST 19 U/L U/L (15-46) ALT 10 U/L L U/L (13-69) Alkaline Phosphatase 145 U/L H U/L (38-126) Total Protein 8.8 g/dL H g/dL (6.3-8.2) Albumin 4.3 g/dL g/dL (3.5-5.0) - Orders Orders: ED Orders Category Date Time Status Place IV Lock 1T Care 02/19/19 15:50 Active BLOOD CULTURE Stat Lab 02/19/19 15:51 Ordered CBC/PLATELET/DIFF Routine Lab 02/19/19 15:51 Completed CMP Routine Lab 02/19/19 15:51 Completed WOUND CULTURE Stat Lab 02/19/19 15:40 Received Vancomycin HCl [Vancocin] 1.25 gm Med 02/19/19 16:14 Active 0.9 % Sodium Chloride [Normal Saline] 500 ml IV NOW Upper Extremity Problem - EXAM General Appearance: no acute distress, alert Skin: warm/dry Shoulder Exam: normal inspection Elbow/Forearm Exam: soft tissue tenderness (right), swelling (serous drainage from wound) Wrist Exam: normal inspection, non-tender, no evidence of injury Hand Exam: normal inspection, non-tender, no evidence of injury Neuro/Tendon: normal sensation, no evidence tendon injury EENT: MONIQUE CVS: reg rate & rhythm, heart sounds normal Vascular: no vascular compromise Peripheral: sensation nml, motor nml Central: oriented X3, sensation nml, mood/affect nml Respiratory: no resp. distress, breath sounds nml Abdomen: non-tender, nml bowel sounds, no distention. No: tenderness Discharge Clincal Impression: Cellulitis of arm, right, Failure of outpatient treatment Condition: Fair Disposition: ADMITTED INPATIENT Decision to Admit: [id number] Date of Decison to Admit: 02/19/19 Decision Time: 16:38
[2019-02-19] MEDS ORDERED: ONDANSETRON HCL/PF 4 MG/ 2ML VIAL IVP PRN (17:27)
[2019-02-19] MEDS ORDERED: ACETAMINOPHEN 325 MG TABLET PO PRN (17:27)
[2019-02-19 17:28] VITALS: BMI 33.4
[2019-02-19] MEDS ORDERED: MAG HYDROX/ALUMINUM HYD/SIMETH 30 ML UDC PO PRN (17:35)
[2019-02-19] MEDS ORDERED: BISACODYL 5 MG TABLET.DR PO PRN (17:35)
[2019-02-19] MEDS ORDERED: DOCUSATE SODIUM 100 MG CAPSULE PO PRN (17:35)
[2019-02-19] MEDS: 0.9 % SODIUM CHLORIDE 1,000 ML IV SCH (18:00)
[2019-02-19] MEDS ORDERED: VANCOMYCIN PHARMACY TO DOSE IV SCH (18:00)
[2019-02-19] MEDS: IPRATROPIUM/ALBUTEROL SULFATE 3 ML AMPUL.NEB NEB PRN (18:00)
[2019-02-19] MEDS ORDERED: CEFAZOLIN SODIUM/DEXTROSE,ISO 50 ML IV ONE ×2 (18:10→22:56)
[2019-02-19] MEDS ORDERED: 0.9 % SODIUM CHLORIDE 1,000 ML IV ONE (18:10)
[2019-02-19] MEDS: ceFAZolin SODIUM 1 GM VIAL IVP SCH ×2 (18:35→23:01)
[2019-02-19] MEDS: ENOXAPARIN SODIUM 40 MG/0.4 ML DISP.SYRIN SQ SCH (18:36)
[2019-02-19] MEDS: GABAPENTIN 300 MG CAPSULE PO SCH (18:36)
[2019-02-19] MEDS: NEOMYCIN/BACITRACIN/POLYMYXINB OINT 15 GM TP SCH (18:36)
[2019-02-19] MEDS: IPRATROPIUM/ALBUTEROL SULFATE 3 ML AMPUL.NEB NEB SCH (21:27)
[2019-02-19] MEDS ORDERED: NORTRIPTYLINE HCL 25 MG CAPSULE PO ONE (21:30)
[2019-02-19] MEDS ORDERED: TIZANIDINE HCL 4 MG TABLET PO ONE (21:30)
[2019-02-19] MEDS: NORTRIPTYLINE HCL 25 MG CAPSULE PO SCH (21:32)
[2019-02-19] MEDS: TIZANIDINE HCL 2 MG PO SCH (21:32)
[2019-02-19] MEDS: HYDROcodone /APAP 5/325 1 EACH TABLET PO PRN (22:59)
[2019-02-20] MEDS ORDERED: 0.9 % SODIUM CHLORIDE 1,000 ML IV ONE (03:36)
[2019-02-20] MEDS ORDERED: CEFAZOLIN SODIUM/DEXTROSE,ISO 50 ML IV ONE ×3 (03:44→17:25)
[2019-02-20] MEDS: 0.9 % SODIUM CHLORIDE 1,000 ML IV SCH (05:07)
[2019-02-20] MEDS: ceFAZolin SODIUM 1 GM VIAL IVP SCH ×3 (05:08→17:58)
[2019-02-20] MEDS: NEOMYCIN/BACITRACIN/POLYMYXINB OINT 15 GM TP SCH (06:08)
[2019-02-20] MEDS: HYDROcodone /APAP 5/325 1 EACH TABLET PO PRN ×2 (06:13→20:22)
[2019-02-20] MEDS: IPRATROPIUM/ALBUTEROL SULFATE 3 ML AMPUL.NEB NEB PRN (06:33)
[2019-02-20] MEDS ORDERED: TIZANIDINE HCL 4 MG TABLET PO ONE ×2 (07:12→20:18)
[2019-02-20 08:12] LABS: eGFR (Non-African) > 60
--- NOTE | 2019-02-20 08:36 | History and Physical Report ---
History of Present Illnes - History of Present Illness Reason for Visit: Cellulitis of Right Arm History of Present Illness: Patient is a 63-year-old female who presented to the ER with c/o right arm pain with redness/erythema. She had previously seen her PCP on 02/11/19 and stated at that she noticed it a week ago and thought it was a spider bite. She was given a TDAP in the office and started on Augmentin. She started experiencing some nausea and decreased her Augmentin to once a day on 02/18/19. Yesterday her arm began to get significantly worse with more redness, swelling and pain. She also state the wound began to ooze clear fluid and decided to be seen in the ER. - Past Medical History Cardiac: HTN Pulmonary: Asthma [employer] CONSULTANT: CVA, Other (Stroke with right hemiparesis) Gastrointestinal: Gastritis Heme/Onc: Anemia NOS Psych: Depression Musculoskeletal: Chronic low back pain - Past Surgical History Past Surgical History: Hysterectomy - Past Family History Sister 1 Family History: Cancer - Past Social History Smoke: No Alcohol: None Drugs: None Lives: With Family () - Health Maintenance Health Maintenance: Cholesterol, Influenza Vaccine, Pneumococcal Vaccine Influenza Vaccine: Current for this Influenza Season Pneumonia Vaccine: Yes Resuscitation Status: Resusciation Status Resuscitation Status Full Code - Unable to Obtain History Unable to Obtain: No Review of Systems - Review of Systems Constitutional: negative: Fever, Chills Eyes: negative: conjunctivae inflammation ENT: negative: Ear Pain, Nose Discharge, Throat Pain Respiratory: SOB with Excertion. negative: Cough Cardiovascular: negative: Chest Pain, Light Headedness Gastrointestinal: Nausea. negative: Vomiting, Abdominal Pain, Diarrhea Genitourinary: negative: Dysuria Musculoskeletal: Back Pain (chronic ) Skin: Other (redness/erythema/drainage from the right forearm) Neurological: negative: Weakness - Medications/Allergies Allergies/Adverse Reactions: Allergies Allergy/AdvReac Type Severity Reaction Status Date / Time amoxicillin [From Augmentin] AdvReac Vomiting Verified 02/19/19 16:10 clavulanic acid AdvReac Vomiting Verified 02/19/19 16:10 [From Augmentin] Home Medications: Home Medications Acyclovir [Zovirax] 800 mg PO 5XDAY 02/19/19 Diclofenac Sodium [Voltaren] 75 mg PO BID 02/19/19 Gabapentin 300 mg PO TID 02/19/19 Sertraline HCl [Zoloft] 50 mg PO DAILY 02/19/19 amLODIPine BESYLATE [Norvasc] 10 mg PO 0900 02/19/19 Current Inpatient Medications: Current Inpatient Medications Acetaminophen (Tylenol) 650 mg PO Q4 PRN PRN Reason: fever/pain Hydrocodone Bitart/Acetaminophen ([place] 5/325) 1 each PO Q4H PRN PRN Reason: Severe Pain (Score 8-10) Last Admin: 02/20/19 06:13 Dose: 1 each Al Hydrox/Mg Hydrox/Simethicone (Mylanta) 30 ml PO Q6 PRN PRN Reason: Heartburn Albuterol/Ipratropium (Duoneb) 3 ml NEB QID [facility] Last Admin: 02/19/19 21:27 Dose: 3 ml Albuterol/Ipratropium (Duoneb) 3 ml NEB Q4 PRN PRN Reason: Wheezing Last Admin: 02/20/19 06:33 Dose: 3 ml Amlodipine Besylate (Norvasc) 10 mg PO 0900 [facility] Bisacodyl (Dulcolax) 10 mg PO DAILY PRN PRN Reason: Constipation Cefazolin Sodium (Ancef) 1 gm IVP Q6 [facility] Last Admin: 02/20/19 05:08 Dose: 1 gm Docusate Sodium (Colace) 100 mg PO DAILY PRN PRN Reason: Constipation Enoxaparin Sodium (Lovenox) 40 mg SQ DAILY [facility] Stop: 03/05/19 17:59 Last Admin: 02/19/19 18:36 Dose: 40 mg Gabapentin (Neurontin) 300 mg PO TID [facility] Last Admin: 02/19/19 18:36 Dose: 300 mg Sodium Chloride (Normal Saline) 1,000 mls @ 100 mls/hr IV Q10H [facility] Last Admin: 02/20/19 05:07 Dose: 100 mls/hr Vancomycin HCl 1 gm/ Sodium (Chloride) 500 mls @ 250 mls/hr IV NOW ONE Stop: 02/20/19 11:59 Losartan Potassium (Cozaar) 50 mg PO DAILY [facility] Miscellaneous (Pharmacy To Dose Vancomycin) 1 each IV NOW [facility] Miscellaneous (Tizanidine Hcl [Tizanidine Hcl]) 2 mg PO BID [facility] Last Admin: 02/19/19 21:32 Dose: 2 mg Neomycin/Polymyxin/Bacitracin (Triple Antibiotic Ointment) 1 applic TP DAILY [facility] Last Admin: 02/20/19 06:08 Dose: 2 packet Nortriptyline HCl (Pamelor) 25 mg PO HS [facility] Last Admin: 02/19/19 21:32 Dose: 25 mg Ondansetron HCl (Zofran) 4 mg IVP Q6H PRN PRN Reason: Nausea / Vomiting Pantoprazole Sodium (Protonix) 40 mg PO DAILY [facility] Sertraline HCl (Zoloft) 50 mg PO DAILY [facility] Exam - Exam Vital Signs: Vital Signs (72 hours) 02/19/19 02/19/19 02/19/19 16:01 17:17 17:19 Temperature 98.3 F 98.3 F 98.3 F Pulse Rate [ 89 88 74 Pulse ox] Respiratory 18 20 19 Rate Blood Pressure 157/80 [Left Arm] Blood Pressure 146/77 157/80 142/70 [Right Arm] O2 Sat by Pulse 97 97 97 Oximetry 02/19/19 02/19/19 02/19/19 17:34 19:39 21:53 Temperature 98.3 F 98.5 F Pulse Rate [ 88 88 89 Pulse ox] Respiratory 20 20 20 Rate Blood Pressure [Left Arm] Blood Pressure 157/80 126/58 [Right Arm] O2 Sat by Pulse 97 99 Oximetry 02/20/19 02/20/19 01:00 05:00 Temperature 97.6 F 97.9 F Pulse Rate [ 80 82 Pulse ox] Respiratory 18 20 Rate Blood Pressure 129/66 [Left Arm] Blood Pressure 143/64 [Right Arm] O2 Sat by Pulse 98 95 Oximetry General: Alert, Oriented to Person, Oriented to Place, Oriented to Time, Cooperative, Mild distress HEENT: PERRLA, Mouth Mucous membr. moist/[place], Nose Mucous membr. moist/[place] Neck: Normal Range of Motion Carotids: No bruit Lungs: Clear to auscultation, Normal air movement, Speaks full Sentences Cardiovascular: Regular rate, Normal S1, Normal S2 Peripheral Edema: NOne Peripheral Pulses: 2+ Abdomen: Normal bowel sounds, Soft Integumentary: [place], Warm, Cellulitis (Right forearm= 12.5 x 14 cm area of erythema/redness/warmth) Extremities: Normal pulses Neurological: Normal speech, Strength Equal Bilat, Sensation intact Psych/Mental Status: Mental status NL, Mood NL, Appropriate Affect - Laboratory Results Laboratory Results: Laboratory Results 02/19/19 02/19/19 02/20/19 15:51 15:51 05:10 WBC 7.70 RBC 3.97 Hgb 11.5 L Hct 35.1 MCV 88.0 MCH 28.9 MCHC 32.7 RDW 13.4 Plt Count 301 Neut % (Auto) 70.1 Lymph % (Auto) 24.6 [place] % (Auto) 4.1 Eos % (Auto) 0.7 Baso % (Auto) 0.5 Neut # (Auto) 5.4 Lymph # (Auto) 1.9 [place] # (Auto) 0.3 Eos # (Auto) 0.1 Baso # (Auto) 0.0 Sodium 140 143 Potassium 3.5 3.2 L Chloride 101 108 H Carbon Dioxide 27 25 BUN 8 6 L Creatinine 0.55 0.43 L Estimated Creat Clear 155 236 Est GFR ( Amer) > 60 > 60 Est GFR (Non-Af Amer) > 60 > 60 Glucose 109 H 90 Calcium 9.3 7.5 L Total Bilirubin < 0.1 L AST 19 ALT 10 L Alkaline Phosphatase 145 H Total Protein 8.8 H Albumin 4.3 Assessment/Plan - Assessment/Plan (1) Cellulitis of arm, right Status: Acute Current Visit: Yes Assessment: Large area of redness/erythema/warmth/drainage to a large aspect of the right forearm- she is requiring pain medication for the discomfort and antiemetic for the nausea Plan: We are pending wound and blood cultures, will continue to treat with 2 IV antibiotics- pt was unable to tolerate prehospital oral antibiotic which caused worsening of infection- will complete daily dressing changes and the use of ALEX due to open areas. Her TDAP was updated in the clinic on 02/11/19 VTE Assessment - RISK FACTOR SCORE VTE RISK FACTOR SCORES: AGE OVER 60 YEARS, ACUTE INFECTION OTHER THEN SEPSIS - RISK VTE MODERATE RISK: SCORE OF 2 (RISK PROXIMAL DVT 2-4%) PROPHYAXIS NEEDED (L ovenox daily, use of incentive spirometer)
[2019-02-20] MEDS: LOSARTAN POTASSIUM 50 MG TABLET PO SCH (09:05)
[2019-02-20] MEDS: GABAPENTIN 300 MG CAPSULE PO SCH ×3 (09:05→18:00)
[2019-02-20] MEDS: ENOXAPARIN SODIUM 40 MG/0.4 ML DISP.SYRIN SQ SCH (09:05)
[2019-02-20] MEDS: PANTOPRAZOLE SODIUM 40 MG TABLET.DR PO SCH (09:06)
[2019-02-20] MEDS: amLODIPine BESYLATE 5 MG TABLET PO SCH (09:06)
[2019-02-20] MEDS: SERTRALINE HCL 50 MG TABLET PO SCH (09:07)
[2019-02-20] MEDS: TIZANIDINE HCL 2 MG PO SCH ×2 (09:07→20:23)
[2019-02-20] MEDS ORDERED: VANCOMYCIN HCL 1 GM in 0.9 % SODIUM CHLORIDE 500 ML IV ONE (10:00)
[2019-02-20] MEDS ORDERED: VANCOMYCIN HCL 1 GM VIAL IV ONE (10:32)
[2019-02-20] MEDS ORDERED: 0.9 % SODIUM CHLORIDE 500 ML IV ONE (10:34)
[2019-02-20] MEDS: IPRATROPIUM/ALBUTEROL SULFATE 3 ML AMPUL.NEB NEB SCH ×4 (11:16→20:27)
[2019-02-20] MEDS ORDERED: NORTRIPTYLINE HCL 25 MG CAPSULE PO ONE (20:17)
[2019-02-20] MEDS: NORTRIPTYLINE HCL 25 MG CAPSULE PO SCH (20:22)
[2019-02-21] MEDS ORDERED: CEFAZOLIN SODIUM/DEXTROSE,ISO 50 ML IV ONE ×3 (00:03→12:28)
[2019-02-21] MEDS: ceFAZolin SODIUM 1 GM VIAL IVP SCH ×3 (00:41→12:53)
[2019-02-21] MEDS: HYDROcodone /APAP 5/325 1 EACH TABLET PO PRN ×2 (05:39→17:34)
[2019-02-21] MEDS ORDERED: TIZANIDINE HCL 4 MG TABLET PO ONE (07:59)
[2019-02-21] MEDS: IPRATROPIUM/ALBUTEROL SULFATE 3 ML AMPUL.NEB NEB SCH ×4 (08:30→21:40)
[2019-02-21] MEDS: ENOXAPARIN SODIUM 40 MG/0.4 ML DISP.SYRIN SQ SCH (08:53)
[2019-02-21] MEDS: PANTOPRAZOLE SODIUM 40 MG TABLET.DR PO SCH (08:53)
[2019-02-21] MEDS: GABAPENTIN 300 MG CAPSULE PO SCH ×3 (08:53→17:33)
[2019-02-21] MEDS: SERTRALINE HCL 50 MG TABLET PO SCH (08:53)
[2019-02-21] MEDS: TIZANIDINE HCL 4 MG TABLET PO SCH ×2 (08:54→20:23)
[2019-02-21] MEDS: LOSARTAN POTASSIUM 50 MG TABLET PO SCH (08:54)
[2019-02-21] MEDS: amLODIPine BESYLATE 5 MG TABLET PO SCH (08:54)
[2019-02-21] MEDS: NEOMYCIN/BACITRACIN/POLYMYXINB OINT 15 GM TP SCH (09:00)
--- NOTE | 2019-02-21 09:29 | Inpatient Progress Note ---
Subjective - Required Recertification Statement I anticipate X number of days because-include discharge plan: 2 - Review of Systems Events since last encounter: Patient is awake and up this morning- she is really wanting to go home- however, erythema/redness/warmth has increased- the area has become more raised in nature- very warm to the touch- we are continuing with dressing changes and monitoring drainage. Wound culture is not back yet- followed up with pharmacy about Vanc dosing- vanc level back at 5.2- Discussed with patient the importance of staying a couple of more days due to worsening of cellulitis- she voiced understanding. General: Denies: Chills, Fatigue HEENT: Denies: Head Aches, Sinus Congestion Pulmonary: Cough. Denies: Dyspnea Cardiovascular: Denies: Chest Pain, Light Headedness Gastrointestinal: Denies: Nausea, Vomiting Genitourinary: Denies: Dysuria Musculoskeletal: Arm Pain (from cellulitis) Neurological: Denies: Weakness Objective - Exam Vitals and I&O: Vital Signs Temp 97.7 F 02/21/19 08:40 Pulse 90 02/21/19 08:40 Resp 18 02/21/19 08:40 BP 135/73 02/21/19 08:40 Pulse Ox 95 02/21/19 08:40 Intake & Output 02/20/19 02/20/19 02/21/19 11:59 23:59 11:59 Intake Total 2640 240 2800 Balance 2640 240 2800 Intake: Oral 2640 240 2800 Other: Voiding Method Toilet Toilet Toilet # Voids 5 5 7 # Bowel Movements 0 General: Alert, Oriented to Person, Oriented to Place, Oriented to Time, Cooperative, Mild distress (due to arm discomfort) HEENT: PERRLA, Mouth Mucous membr. moist/[place], Nose Mucous membr. moist/[place] Neck: Supple, +2 carotid pulse wo bruit Lungs: Clear to auscultation, Normal air movement, Speaks full Sentences Cardiovascular: Regular rate, Normal S1, Normal S2 Abdomen: Normal bowel sounds, Soft Extremities: Normal pulses Skin: Normal, [place], Warm, Dry, Other (RFA with erythema, redness, drainage, elevation, and warmth) Neurological: Normal gait, Normal speech, Strength Equal Bilat, Sensation intact Psych/Mental Status: Mental status NL, Mood NL, Appropriate Affect, Intact Judgment - Results Results: Laboratory Results WBC 7.70 K/ul (4.00-12.00) 02/19/19 15:51 RBC 3.97 M/ul (3.90-5.20) 02/19/19 15:51 Hgb 11.5 g/dL (12.0-16.0) L 02/19/19 15:51 Hct 35.1 % (34.5-46.5) 02/19/19 15:51 MCV 88.0 fl (80.0-100.0) 02/19/19 15:51 MCH 28.9 pg (28.0-34.0) 02/19/19 15:51 MCHC 32.7 g/dL (30.0-36.0) 02/19/19 15:51 RDW 13.4 % (11.3-14.3) 02/19/19 15:51 Plt Count 301 K/mm3 (130-400) 02/19/19 15:51 Neut % (Auto) 70.1 % (39.0-79.0) 02/19/19 15:51 Lymph % (Auto) 24.6 % (16.0-50.0) 02/19/19 15:51 [place] % (Auto) 4.1 % (0.0-11.0) 02/19/19 15:51 Eos % (Auto) 0.7 % (0.0-6.8) 02/19/19 15:51 Baso % (Auto) 0.5 (0.0-1.5) 02/19/19 15:51 Neut # (Auto) 5.4 # k/uL (1.4-7.7) 02/19/19 15:51 Lymph # (Auto) 1.9 # k/uL (0.6-4.0) 02/19/19 15:51 [place] # (Auto) 0.3 # k/uL (0.0-0.9) 02/19/19 15:51 Eos # (Auto) 0.1 # k/uL (0.0-0.6) 02/19/19 15:51 Baso # (Auto) 0.0 # k/uL (0.0-0.5) 02/19/19 15:51 Sodium 143 mmol/L (136-145) 02/20/19 05:10 Potassium 3.2 mmol/L (3.5-5.1) L 02/20/19 05:10 Chloride 108 mmol/L (98-107) H 02/20/19 05:10 Carbon Dioxide 25 mmol/L (22-30) 02/20/19 05:10 BUN 6 mg/dL (7-17) L 02/20/19 05:10 Creatinine 0.43 mg/dL (0.52-1.04) L 02/20/19 05:10 Estimated Creat Clear 236 02/20/19 05:10 Est GFR ( Amer) > 60 (60-) 02/20/19 05:10 Est GFR (Non-Af Amer) > 60 (60-) 02/20/19 05:10 Glucose 90 mg/dL (74-106) 02/20/19 05:10 Calcium 7.5 mg/dL (8.4-10.2) L 02/20/19 05:10 Total Bilirubin < 0.1 mg/dL (0.2-1.3) L 02/19/19 15:51 AST 19 U/L (15-46) 02/19/19 15:51 ALT 10 U/L (13-69) L 02/19/19 15:51 Alkaline Phosphatase 145 U/L (38-126) H 02/19/19 15:51 Total Protein 8.8 g/dL (6.3-8.2) H 02/19/19 15:51 Albumin 4.3 g/dL (3.5-5.0) 02/19/19 15:51 Vancomycin Trough See scanned report 02/20/19 06:00 Assessment/Plan - Assessment/Plan (1) Cellulitis of arm, right Status: Acute Current Visit: Yes Assessment: Cellulitis of arm appears worsened with redness, erythema, warmth, drainage, and elevation Plan: Awaiting wound culture, continue with dressing changes, Pharmacy will dose vanc.
[2019-02-21] MEDS: VANCOMYCIN HCL 1 GM in 0.9 % SODIUM CHLORIDE 250 ML IV SCH ×2 (11:02→21:42)
[2019-02-21] MEDS: CEFAZOLIN SODIUM/DEXTROSE,ISO 1 GM/50 ML PIGGYBACK IV SCH ×2 (17:32→23:03)
[2019-02-21] MEDS ORDERED: NORTRIPTYLINE HCL 25 MG CAPSULE PO ONE (20:17)
[2019-02-21] MEDS: NORTRIPTYLINE HCL 25 MG CAPSULE PO SCH (20:24)
[2019-02-22] MEDS: CEFAZOLIN SODIUM/DEXTROSE,ISO 1 GM/50 ML PIGGYBACK IV SCH ×4 (05:31→23:59)
[2019-02-22 06:20] LABS: MEAN CORPUSCULAR HEMOGLOBIN 28.9 pg (28.0-34.0)
[2019-02-22 06:21] LABS: BASOPHILS % 0.4 (0.0-1.5); EOSINOPHILS % 0.5 % (0.0-6.8); MONOCYTES % 3.6 % (0.0-11.0)
[2019-02-22 06:33] LABS: eGFR (Non-African) > 60
[2019-02-22] MEDS: amLODIPine BESYLATE 5 MG TABLET PO SCH (08:03)
[2019-02-22] MEDS: LOSARTAN POTASSIUM 50 MG TABLET PO SCH (08:04)
[2019-02-22] MEDS: PANTOPRAZOLE SODIUM 40 MG TABLET.DR PO SCH (08:05)
[2019-02-22] MEDS: TIZANIDINE HCL 4 MG TABLET PO SCH ×2 (08:05→21:01)
[2019-02-22] MEDS: SERTRALINE HCL 50 MG TABLET PO SCH (08:05)
[2019-02-22] MEDS: GABAPENTIN 300 MG CAPSULE PO SCH ×3 (08:06→17:31)
[2019-02-22] MEDS: ENOXAPARIN SODIUM 40 MG/0.4 ML DISP.SYRIN SQ SCH (08:08)
[2019-02-22] MEDS: NEOMYCIN/BACITRACIN/POLYMYXINB OINT 15 GM TP SCH (08:12)
[2019-02-22] MEDS: IPRATROPIUM/ALBUTEROL SULFATE 3 ML AMPUL.NEB NEB SCH ×4 (08:25→21:01)
[2019-02-22] MEDS: VANCOMYCIN HCL 1 GM in 0.9 % SODIUM CHLORIDE 250 ML IV SCH ×2 (10:26→21:31)
--- NOTE | 2019-02-22 14:58 | Inpatient Progress Note ---
Subjective - Required Recertification Statement I anticipate X number of days because-include discharge plan: 1 - Review of Systems Events since last encounter: Carol's elbow does not look to be improved from yesterday. Her wound cultures show heavy growth of staph, but no sensitivities yet. General: Denies: Chills, Night Sweats HEENT: Denies: Head Aches, Visual Changes Pulmonary: Denies: Dyspnea, Cough Cardiovascular: Denies: Chest Pain Gastrointestinal: Denies: Nausea, Vomiting Genitourinary: Denies: Dysuria Musculoskeletal: Arm Pain (Right elbow) Neurological: Denies: Weakness, Numbness, Incoordination Objective - Exam Vitals and I&O: Vital Signs Temp 98.2 F 02/22/19 13:42 Pulse 105 H 02/22/19 13:42 Resp 20 02/22/19 13:42 BP 136/82 02/22/19 13:42 Pulse Ox 97 02/22/19 13:42 Intake & Output 02/21/19 02/22/19 02/22/19 23:59 11:59 23:59 Intake Total 960 660 480 Output Total 2 300 Balance 958 360 480 Intake: IV 300 Left Forearm 300 Oral 960 360 480 Output: Urine 2 300 Other: Voiding Method Toilet Toilet Toilet # Bowel Movements 0 0 General: Alert, Oriented to Person, Oriented to Place, Oriented to Time HEENT: Atraumatic, PERRLA, EOMI Neck: Supple, No JVD Lungs: Clear to auscultation, Normal air movement Cardiovascular: Regular rate, Normal S1, Normal S2 Abdomen: Normal bowel sounds, Soft Extremities: Other (Rigth elbow wound is very warm and more swollen than when I saw it yesterday. ) - Results Results: Laboratory Results WBC 6.00 K/ul (4.00-12.00) 02/22/19 06:00 RBC 3.88 M/ul (3.90-5.20) L 02/22/19 06:00 Hgb 11.2 g/dL (12.0-16.0) L 02/22/19 06:00 Hct 34.4 % (34.5-46.5) L 02/22/19 06:00 MCV 89.0 fl (80.0-100.0) 02/22/19 06:00 MCH 28.9 pg (28.0-34.0) 02/22/19 06:00 MCHC 32.6 g/dL (30.0-36.0) 02/22/19 06:00 RDW 13.0 % (11.3-14.3) 02/22/19 06:00 Plt Count 282 K/mm3 (130-400) 02/22/19 06:00 Neut % (Auto) 66.8 % (39.0-79.0) 02/22/19 06:00 Lymph % (Auto) 28.7 % (16.0-50.0) 02/22/19 06:00 [place] % (Auto) 3.6 % (0.0-11.0) 02/22/19 06:00 Eos % (Auto) 0.5 % (0.0-6.8) 02/22/19 06:00 Baso % (Auto) 0.4 (0.0-1.5) 02/22/19 06:00 Neut # (Auto) 4.0 # k/uL (1.4-7.7) 02/22/19 06:00 Lymph # (Auto) 1.7 # k/uL (0.6-4.0) 02/22/19 06:00 [place] # (Auto) 0.2 # k/uL (0.0-0.9) 02/22/19 06:00 Eos # (Auto) 0.0 # k/uL (0.0-0.6) 02/22/19 06:00 Baso # (Auto) 0.0 # k/uL (0.0-0.5) 02/22/19 06:00 Sodium 137 mmol/L (136-145) 02/22/19 06:00 Potassium 3.9 mmol/L (3.5-5.1) 02/22/19 06:00 Chloride 98 mmol/L (98-107) 02/22/19 06:00 Carbon Dioxide 29 mmol/L (22-30) 02/22/19 06:00 BUN 10 mg/dL (7-17) 02/22/19 06:00 Creatinine 0.50 mg/dL (0.52-1.04) L 02/22/19 06:00 Estimated Creat Clear 203 02/22/19 06:00 Est GFR ( Amer) > 60 (60-) 02/22/19 06:00 Est GFR (Non-Af Amer) > 60 (60-) 02/22/19 06:00 Glucose 106 mg/dL (74-106) 02/22/19 06:00 Calcium 9.3 mg/dL (8.4-10.2) 02/22/19 06:00 Total Bilirubin < 0.1 mg/dL (0.2-1.3) L 02/22/19 06:00 AST 17 U/L (15-46) 02/22/19 06:00 ALT < 6 U/L (13-69) L 02/22/19 06:00 Alkaline Phosphatase 126 U/L (38-126) 02/22/19 06:00 Total Protein 8.3 g/dL (6.3-8.2) H 02/22/19 06:00 Albumin 4.1 g/dL (3.5-5.0) 02/22/19 06:00 Vancomycin Trough See scanned report 02/20/19 06:00 Assessment/Plan - Assessment/Plan (1) Cellulitis of arm, right Status: Acute Current Visit: Yes Assessment: Continue Vancomycin Await culture results. (2) Failure of outpatient treatment Status: Acute Current Visit: Yes
[2019-02-22] MEDS: HYDROcodone /APAP 5/325 1 EACH TABLET PO PRN ×2 (18:05→22:30)
[2019-02-22] MEDS: NORTRIPTYLINE HCL 25 MG CAPSULE PO SCH (21:01)
[2019-02-23] MEDS: HYDROcodone /APAP 5/325 1 EACH TABLET PO PRN (04:54)
[2019-02-23] MEDS: CEFAZOLIN SODIUM/DEXTROSE,ISO 1 GM/50 ML PIGGYBACK IV SCH ×2 (05:03→12:02)
[2019-02-23] MEDS: IPRATROPIUM/ALBUTEROL SULFATE 3 ML AMPUL.NEB NEB SCH ×2 (08:54→12:10)
[2019-02-23] MEDS: ENOXAPARIN SODIUM 40 MG/0.4 ML DISP.SYRIN SQ SCH (09:17)
[2019-02-23] MEDS: amLODIPine BESYLATE 5 MG TABLET PO SCH (09:17)
[2019-02-23] MEDS: GABAPENTIN 300 MG CAPSULE PO SCH ×2 (09:17→12:40)
[2019-02-23] MEDS: LOSARTAN POTASSIUM 50 MG TABLET PO SCH (09:17)
[2019-02-23] MEDS: SERTRALINE HCL 50 MG TABLET PO SCH (09:18)
[2019-02-23] MEDS: TIZANIDINE HCL 4 MG TABLET PO SCH (09:18)
[2019-02-23] MEDS: PANTOPRAZOLE SODIUM 40 MG TABLET.DR PO SCH (09:18)
[2019-02-23] MEDS: NEOMYCIN/BACITRACIN/POLYMYXINB OINT 15 GM TP SCH (10:20)
[2019-02-23] MEDS: VANCOMYCIN HCL 1 GM in 0.9 % SODIUM CHLORIDE 250 ML IV SCH (10:51)
--- NOTE | 2019-02-23 12:56 | Discharge Summary ---
Discharge Summary - Discharge [facility] Admission Date: 02/20/19 Discharge Date: 02/23/19 History of Present Illness: Patient is a 63-year-old female who presented to the ER with c/o right arm pain with redness/erythema. She had previously seen her PCP on 02/11/19 and stated at that she noticed it a week ago and thought it was a spider bite. She was given a TDAP in the office and started on Augmentin. She started experiencing some nausea and decreased her Augmentin to once a day on 02/18/19. Yesterday her arm began to get significantly worse with more redness, swelling and pain. She also state the wound began to ooze clear fluid and decided to be seen in the ER. Home Medications: Ambulatory Orders Medication Instructions Recorded Acyclovir [Zovirax] 800 mg PO 5XDAY 02/19/19 Diclofenac Sodium [Voltaren] 75 mg PO BID 02/19/19 Gabapentin 300 mg PO TID 02/19/19 Sertraline HCl [Zoloft] 50 mg PO DAILY 02/19/19 amLODIPine BESYLATE [Norvasc] 10 mg PO 0900 02/19/19 Allergies/Adverse Reactions: Allergies Allergy/AdvReac Type Severity Reaction Status Date / Time amoxicillin [From Augmentin] AdvReac Vomiting Verified 02/19/19 16:10 clavulanic acid AdvReac Vomiting Verified 02/19/19 16:10 [From Augmentin] Patient Problems: Current Active Problems Problem Status Onset Cellulitis of arm, right Acute Failure of outpatient treatment Acute Hospital Course: She was admitted and started on IV Vancomycin. On 02/22/19, her wound was drained. 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 She was discharged to home with an Rx for ciprofloxacin being sent to [facility]. Follow up with Dr. Amaya on Thursday.
[2019-02-23 13:18] VITALS: BP 135/76
== END 2019-02-23 13:45 | disposition home or self-care (01) | DRG 603 ==
LOC: ED 15:26 → SOUTH 16:48
PROVIDERS: ADMIT Nurse Practitioner Family; ATTEND Family Medicine
DX: L03.113 Cellulitis of right upper limb (principal); A49.02 Methicillin resistant Staphylococcus aureus infection, unspecified site; R11.0 Nausea; J45.909 Unspecified asthma, uncomplicated
CPT/HCPCS: 80048; 80053; 80202; 85025; 87040; 87070; 94640; 94760; 99283; 99284; A9270; J0690; J1650; J3370; J7030; J7050; J7060; 99222; 99231; 99232; 99238; S1016

== ENCOUNTER 2019-05-13 08:14 | Outpatient (CLI) | payer MEDICARE, OTHER ==
[2019-05-25 15:12] LABS: eGFR (Non-African) > 60
== END 2019-05-13 08:24 | disposition home or self-care (01) ==
LOC: RT 08:14
PROVIDERS: ATTEND Orthopaedic Surgery
DX: M70.22 Olecranon bursitis, left elbow (principal)
CPT/HCPCS: 36415; 71020; 80053

== ENCOUNTER 2019-09-07 16:00 | Outpatient (CLI) | payer MEDICARE, OTHER | END 2019-09-07 16:05 | LOC: LABRHC 16:00 | PROVIDERS: ATTEND Family Medicine | DX: M11.20 Other chondrocalcinosis, unspecified site (principal) | CPT/HCPCS: 89060 ==